=== PATIENT | female | born 1985 | race Hispanic/Latino ===

== ENCOUNTER 2018-08-05 14:44 | Emergency (ER) | payer MEDICAID ==
[~2018-08-05] VITALS: Ht 157.5 cm; Wt 77.3 kg
[2018-08-05] MEDS ORDERED: LEVOTHYROXINE175 MCG PO (15:29)
[2018-08-05] MEDS ORDERED: KEFLEX500 M1 PO (16:46)
[2018-08-05 17:29] VITALS: BP 100/53
== END 2018-08-05 17:29 | disposition home or self-care (01) ==
LOC: ED 14:44
DX: S81.811A Laceration without foreign body, right lower leg, initial encounter (principal); W25.XXXA Contact with sharp glass, initial encounter; Y93.E9 Activity, other interior property and clothing maintenance; Y92.009 Unspecified place in unspecified non-institutional (private) residence as the place of occurrence of the external cause

== ENCOUNTER 2018-08-19 12:33 | Emergency (ER) | payer MEDICAID ==
[~2018-08-19] VITALS: Ht 157.5 cm; Wt 80.0 kg
[~2018-08-19 12:33] MED LIST: KEFLEX500 M1 PO; LEVOTHYROXINE175 MCG PO
[2018-08-19 13:20] VITALS: BP 119/71
== END 2018-08-19 13:22 | disposition home or self-care (01) ==
LOC: ED 12:33
DX: S81.811D Laceration without foreign body, right lower leg, subsequent encounter (principal)

== ENCOUNTER 2021-04-27 16:17 | Emergency (ER) | payer SELFPAY ==
[~2021-04-27] VITALS: Ht 157.5 cm; Wt 77.3 kg
[2021-04-27 17:30] LABS: IMMATURE GRANULOCYTES 0.2 % (0.0-5.0); MEAN CELL VOLUME 89.8 fL CALC (80.0-100.0); MEAN CORPUSCULAR HGB 30.5 pG CALC (26.0-32.0); MEAN CORPUSCULAR HGB CONC 33.9 g/dL CAL (32.0-36.0); NEUT# 9.45 thou/uL (2.00-7.15); RED BLOOD COUNT 4.4 mill/uL (4.20-5.60)
[2021-04-27 17:33] LABS: HEMATOCRIT 39.5 % (37.0-47.0); HEMOGLOBIN 13.4 g/dl (12.0-16.0)
[2021-04-27 17:43] LABS: ALBUMIN 4.4 g/dL (3.2-5.0); ALKALINE PHOSPHATASE 60 u/l (38-126); ANION GAP 14 (6-22 (CALC)); BILIRUBIN, TOTAL 0.4 mg/dL (0.0-1.4); BUN 13 mg/dL (7-17); BUN/CREATININE RATIO 22 (12-20 (CALC)); CARBON DIOXIDE 24 mmol/l (22-30); CHLORIDE 104 mmol/l (95-108); CREATININE 0.6 mg/dL (0.5-1.0); ETHYL ALCOHOL 0 mg/dl (0-30); GFR > 60 ML/MIN (>=60 (CALC)); GFR FOR AFR.AMER. > 60 ML/MIN (>=60 (CALC)); SGOT/AST 28 u/l (14-36); SODIUM 137 mmol/l (137-146); TOTAL PROTEIN 7.4 g/dL (6.3-8.2)
[2021-04-27 19:30] VITALS: BP 98/53
== END 2021-04-27 19:30 ==
LOC: ED 16:17
PROVIDERS: Family Medicine
DX: R45.851 Suicidal ideations (principal); R00.2 Palpitations; Z20.822 Contact with and (suspected) exposure to COVID-19

== ENCOUNTER 2022-06-29 19:05 | Emergency (ER) | payer SELFPAY ==
[2022-06-29] VITALS (10 sets, daily range): BP systolic 111–131; BP diastolic 69–91
[~2022-06-29] VITALS: Ht 157.5 cm; Wt 77.0 kg
[2022-06-29 19:59] LABS: HEMATOCRIT 40.1 % (37.0-47.0); HEMOGLOBIN 13.6 g/dl (12.0-16.0); IMMATURE GRANULOCYTES 0.1 % (0.0-5.0); MEAN CELL VOLUME 90.3 fL CALC (80.0-100.0); MEAN CORPUSCULAR HGB 30.6 pG CALC (26.0-32.0); MEAN CORPUSCULAR HGB CONC 33.9 g/dL CAL (32.0-36.0); NEUT# 8.74 thou/uL (2.00-7.15); RED BLOOD COUNT 4.44 mill/uL (4.20-5.60); RED CELL DISTRI WIDTH 12.9 % (11.5-15.5)
[2022-06-29 20:09] LABS: ALBUMIN 4.5 g/dL (3.2-5.0); ALKALINE PHOSPHATASE 61 u/l (38-126); ANION GAP 9 (6-22 (CALC)); BUN 11 mg/dL (7-17); BUN/CREATININE RATIO 16 (12-20 (CALC)); CARBON DIOXIDE 27 mmol/l (22-30); CHLORIDE 104 mmol/l (95-108); CREATININE 0.7 mg/dL (0.5-1.0); ETHYL ALCOHOL 0 mg/dl (0-30); GFR FOR AFR.AMER. > 60 ML/MIN (>=60 (CALC)); GFR OTHER RACES > 60 ML/MIN (>=60 (CALC)); POTASSIUM 3.9 mmol/l (3.5-5.1); SGOT/AST 26 u/l (14-36); SODIUM 136 mmol/l (137-146); TOTAL PROTEIN 7.7 g/dL (6.3-8.2)
[2022-06-29 20:14] LABS: BILIRUBIN, TOTAL 0.2 mg/dL (0.0-1.4)
[2022-06-29 20:21] LABS: MYOGLOBIN 21 ng/mL (0 - 62)
[2022-06-29 20:46] LABS: URINE BILIRUBIN - DIPSTICK NEGATIVE (NEGATIVE); URINE BLOOD DIPSTICK NEGATIVE (NEGATIVE); URINE COLOR YELLOW; URINE GLUCOSE - DIPSTICK NEGATIVE (NEGATIVE); URINE KETONE NEGATIVE (NEGATIVE); URINE LEUK ESTERASE NEGATIVE (NEGATIVE); URINE PROTEIN - DIPSTICK NEGATIVE (NEG-TRACE); URINE SPECIFIC GRAVITY <=1.005; URINE UROBILINOGEN - DIPSTICK 0.2 E.U./dL (0.2)
[2022-06-29 20:47] LABS: URINE NITRITE - DIPSTICK NEGATIVE (Negative)
== END 2022-06-29 22:19 | disposition home or self-care (01) | DRG 310 ==
LOC: ED 19:05
PROVIDERS: Family Medicine
DX: R00.2 Palpitations (principal); F19.10 Other psychoactive substance abuse, uncomplicated